=== PATIENT | male | born 1980 | race Two or more races ===

== ENCOUNTER 2017-06-09 22:58 | Inpatient (IN) | payer MEDICAID ==
[~2017-06-09] VITALS: Ht 182.9 cm; Wt 74.3 kg
[~2017-06-09 22:58] MED LIST: GEMF600T60 PO; LANT3I SC; METF1000 PO; NOVO3I SC; OMEP20CA16 PO
[2017-06-10] VITALS (8 sets, daily range): BP systolic 108–126; BP diastolic 67–89; PULSE 83–97; RESP 6–16; TEMP 97.1; Ht 182.9 cm; Wt 74.3 kg
[2017-06-10] MEDS ORDERED: ONDANSETRON (ODT) 4 MG TAB ODT STA (00:34)
--- NOTE | 2017-06-10 00:43 | ERD ---
ER Documentation Chief Complaint Chief Complaint upper abd pain x 1 day, hx of pancreatitis HPI 36-year-old male who presents emergency department for epigastric pain for 2 days. Stated that he vomited thrice with nonbilious and nonbloody emesis in the past 24 hours. Denies headache, dizziness, blurry vision, neck pain, throat pain, difficulty swallowing, shoulder pain, chest pain, back pain, constipation, diarrhea, urinary symptoms, changes in bowel or bladder habits, loss of bowel bladder control, recent long travel, recent exposure to any illness, numbness or tingling sensation, difficulty walking, fever, chills. No known drug allergies. Past medical history of diabetes, pancreatitis. No surgical history. Medication: Humalog insulin, Lantus, omeprazole. 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 Denies smoking, use of alcoholic beverages, use of illegal drugs. ROS All systems reviewed and are negative except as per history of present illness. Medications Home Meds Active Scripts Omeprazole* (Omeprazole*) 20 Mg Capsule.dr, 20 MG PO DAILY, #30 CAP Prov:CORRY CHAU MD 10/27/15 Insulin Aspart* (Novolog Insulin Pen*) 100 Unit/Ml Soln, 5 UNIT SC WITH MEALS for 30 Days, 2 Refills Prov:IRVIN HATFIELD MD 08/26/14 Insulin Glargine* (Lantus*) 100 Unit/Ml Soln, 35 UNIT SC QHS for 30 Days, 2 Refills Prov:IRVIN HATFIELD MD 08/26/14 Reported Medications Metformin Hcl* (Metformin Hcl*) 1,000 Mg Tablet, 1000 MG PO WITH BREAKFAST DINNE , TAB 08/23/14 Gemfibrozil* (Gemfibrozil*) 600 Mg Tablet, 600 MG PO BID, TAB 08/23/14 Allergies Allergies: Coded Allergies: No Known Allergy (Unverified , 10/24/15) PMhx/Soc History of Surgery: No Anesthesia Reaction: No Hx Neurological Disorder: No Hx Respiratory Disorders: No Hx Cardiac Disorders: No Hx Psychiatric Problems: No Hx Alcohol Use: Yes (OCASSIONALLY) Hx Substance Use: No Hx Tobacco Use: Yes (1 PACK PER WEEK ) Physical Exam Vitals Vital Signs Date Time Temp Pulse Resp B/P Pulse Ox O2 Delivery O2 Flow Rate FiO2 06/09/17 23:04 97.1 104 20 151/87 100 Physical Exam Const: [] Head: Atraumatic Eyes: Normal Conjunctiva ENT: Normal External Ears, Nose and Mouth. Neck: Full range of motion..~ No meningismus. Resp: Clear to auscultation bilaterally Cardio: Regular rate and rhythm, no murmurs Abd: Soft, non distended. Normal bowel sounds. Tenderness to right upper abdominal area/epigastric area on light and deep palpation during inspiration. Skin: No petechiae or rashes Back: No midline or flank tenderness Ext: No cyanosis, or edema Neur: Awake and alert Psych: Normal Mood and Affect Result Diagram: 06/10/174906/10/1749 Results 24 hrs Laboratory Tests Test 06/10/17 00:50 06/10/17 00:58 White Blood Count 11.210^3/ul Red Blood Count 4.7910^6/ul Hemoglobin 16.7g/dl Hematocrit 40.6% Mean Corpuscular Volume 84.8fl Mean Corpuscular Hemoglobin 34.9pg Mean Corpuscular Hemoglobin Concent 41.1g/dl Red Cell Distribution Width 12.2% Platelet Count 71680^3/UL Mean Platelet Volume 10.7fl Neutrophils % 86.3% Lymphocytes % 6.3% Monocytes % 6.5% Eosinophils % 0.2% Basophils % 0.3% Nucleated Red Blood Cells % 0.0/100WBC Neutrophils # 9.710^3/ul Lymphocytes # 0.710^3/ul Monocytes # 0.710^3/ul Eosinophils # 0.010^3/ul Basophils # 0.010^3/ul Nucleated Red Blood Cells # 0.010^3/ul Prothrombin Time 11.8Sec Prothrombin Time Ratio 0.9 INR International Normalized Ratio 0.87 Activated Partial Thromboplast Time 25.0Sec Sodium Level 137mmol/L Potassium Level 4.5mmol/L Chloride Level 100mmol/L Carbon Dioxide Level 14mmol/L Anion Gap 28 Blood Urea Nitrogen 10mg/dl Creatinine 0.64mg/dl Glucose Level 263mg/dl Calcium Level 9.1mg/dl Total Bilirubin 0.5mg/dl Direct Bilirubin 0.00mg/dl Indirect Bilirubin 0.5mg/dl Aspartate Amino Transf (AST/SGOT) 33IU/L Alanine Aminotransferase (ALT/SGPT) 27IU/L Alkaline Phosphatase 177IU/L Troponin I 0.019ng/ml Total Protein 7.9g/dl Albumin 3.9g/dl Globulin 4.00g/dl Albumin/Globulin Ratio 0.97 Amylase Level 472U/L Lipase 7912U/L Urine Color YELLOW Urine Clarity CLEAR Urine pH 5.0 Urine Specific [place] 1.036 Urine Ketones 2+mg/dL Urine Nitrite NEGATIVEmg/dL Urine Bilirubin NEGATIVEmg/dL Urine Urobilinogen NEGATIVEmg/dL Urine Leukocyte Esterase TRACELeu/ul Urine Microscopic RBC 4/HPF Urine Microscopic WBC 7/HPF Urine Squamous Epithelial Cells FEW/HPF Urine Hemoglobin NEGATIVEmg/dL Urine Glucose 3+mg/dL Urine Total Protein 1+mg/dl Current Medications Medications (Trade) Dose Ordered Sig/Keegan Route PRN Reason Start Time Stop Time Status Last Admin Dose Admin Ondansetron HCl (Zofran Odt) 4 mg ONCE STAT ODT 06/10/17 00:34 06/10/17 00:38 DC 06/10/17 00:49 Miscellaneous Medication 40 ml 40 ml ONCE ONCE PO 06/10/17 01:00 06/10/17 01:01 DC 06/10/17 00:49 Sodium Chloride 1,000 ml @ 1,000 mls/hr Q1H ONCE IV 06/10/17 03:30 06/10/17 04:29 Sodium Chloride (NS) 1,000 ml @ 1,000 mls/hr Q1H ONCE IV 06/10/17 03:30 06/10/17 04:29 Procedures/MDM 36-year-old male who presents emergency department for epigastric pain for 2 days. Stated that he vomited thrice with nonbilious and nonbloody emesis in the past 24 hours. Denies headache, dizziness, blurry vision, neck pain, throat pain, difficulty swallowing, shoulder pain, chest pain, back pain, constipation, diarrhea, urinary symptoms, changes in bowel or bladder habits, loss of bowel bladder control, recent long travel, recent exposure to any illness, numbness or tingling sensation, difficulty walking, fever, chills. No known drug allergies. Past medical history of diabetes, pancreatitis. No surgical history. Medication: Humalog insulin, Lantus, omeprazole. 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 Denies smoking, use of alcoholic beverages, use of illegal drugs. Physical exam: Tenderness to right upper abdominal area/epigastric area on light and deep palpation during inspiration. There is no right lower/left upper /left lower abdominal tenderness and likely palpation. Able to jump 5 times without developing right lower abdominal pain. No CVA tenderness. Disease process was explained to the patient. He verbalized understanding and agreed with the diagnostic test, treatment, plan of care, follow-up care. EKG: Sinus tachycardia with a ventricular rate of 106 bpm. No evidence of acute myocardial infarction. No evidence of ischemia. Read by supervising emergency room physician, Dr. Salomon Henderson. Abdominal ultrasound: Negative examination of the abdomen. Blood works: Elevated lipase and amylase. Mildly elevated white count. Urinalysis: Reviewed. Treatment: P.o. challenge. Zofran ODT. GI cocktail p.o. insertion. Normal saline IV. Morphine IV. Differential diagnosis: Diabetic ketoacidosis versus acute myocardial infarction versus acute coronary syndrome versus appendicitis versus cholecystitis versus diverticulitis versus appendicitis versus nephrolithiasis versus urinary tract infection versus gastritis Final diagnosis: Pancreatitis, elevated lipase and amylase, elevated blood sugar Case and diagnostic test results was discussed with supervising emergency room physician, Dr. Salomon Henderson agreed with my medical decision making to admit the patient. He also stated that he will process admission. Departure Diagnosis: Primary Impression: Abdominal pain Additional Impression: Pancreatitis ASHLEY FONTANEZ Jun 10, 2017 00:43
[2017-06-10] MEDS ORDERED: LIDOCAINE/MYLANTA 40 ML BTL PO ONE (01:00)
[2017-06-10 01:04] LABS: BASOPHILS % 0.3 % (0.0-2.0); EOSINOPHILS % 0.2 % (0.0-7.0); HEMATOCRIT 40.6 % (42.0-52.0); LYMPHOCYTES # 0.7 10^3/ul (0.8-2.9); LYMPHOCYTES % 6.3 % (15.0-51.0); MEAN CORPUSCULAR HEMOGLOBIN 34.9 pg (29.0-33.0); MEAN CORPUSCULAR VOLUME 84.8 fl (82.0-101.0); MEAN PLATELET VOLUME 10.7 fl (7.4-10.4); MONOCYTE # 0.7 10^3/ul (0.3-0.9); MONOCYTES % 6.5 % (0.0-11.0); NEUTROPHIL # 9.7 10^3/ul (1.6-7.5); NEUTROPHILS % 86.3 % (39.0-77.0); PLATELET COUNT 179 10^3/UL (140-415); POSITIVE DIFF @See below; RED BLOOD COUNT 4.79 10^6/ul (4.70-6.10); RED CELL DISTRIBUTION WIDTH 12.2 % (11.5-14.5); WHITE BLOOD COUNT 11.2 10^3/ul (4.8-10.8)
[2017-06-10 01:06] LABS: HEMOGLOBIN 16.7 g/dl (14.0-18.0); MEAN CORPUSCULAR HGB CONC 41.1 g/dl (32.0-37.0)
[2017-06-10 01:16] LABS: INR 0.87; PROTIME 11.8 Sec (12.2-14.2); PT RATIO 0.9
[2017-06-10 01:19] LABS: ALBUMIN 3.9 g/dl (3.3-4.9); ALBUMIN/GLOBULIN RATIO 0.97; BILIRUBIN,INDIRECT 0.5 mg/dl (0-1.1); BILIRUBIN,TOTAL 0.5 mg/dl (0.2-1.3); CALCIUM 9.1 mg/dl (8.4-10.2); CREATININE 0.64 mg/dl (0.61-1.24); TOTAL PROTEIN 7.9 g/dl (6.1-8.1)
[2017-06-10 01:29] LABS: TROPONIN-I 0.019 ng/ml (0.00-0.12)
[2017-06-10 01:30] LABS: ADD UMIC YES; UR ASCORBIC ACID NEGATIVE (NEGATIVE); UR BILIRUBIN (Dip) NEGATIVE (NEGATIVE); UR BLOOD (Dip) NEGATIVE (NEGATIVE); UR CLARITY CLEAR (CLEAR); UR COLOR YELLOW (YELLOW); UR GLUCOSE (Dip) 3+ mg/dL (NEGATIVE); UR KETONES (Dip) 2+ mg/dL (NEGATIVE); UR LEUKOCYTE ESTERASE (Dip) TRACE Leu/ul (NEGATIVE); UR NITRITE (Dip) NEGATIVE (NEGATIVE); UR RBC 4 /HPF (0-5); UR SPECIFIC GRAVITY (Dip) 1.036 (1.003-1.030); UR SQUAMOUS EPITHELIAL CELL FEW /HPF (FEW); UR TOTAL PROTEIN (Dip) 1+ mg/dl (NEGATIVE); UR UROBILINOGEN (Dip) NEGATIVE (NEGATIVE)
[2017-06-10 01:34] LABS: POTASSIUM 4.5 mmol/L (3.5-5.1)
--- NOTE | 2017-06-10 02:04 | RADRPT ---
PROCEDURE: US Abdomen (right upper quadrant). CLINICAL INDICATION: Pain. TECHNIQUE: Multiple real-time longitudinal and transverse images of the right upper quadrant of th e abdomen were acquired utilizing a curved array transducer. Images were reviewed on a high-resoluti on PACS workstation. COMPARISON: 10/24/2015 FINDINGS: The liver is normal in size and echogencity. There is no focal intrahepatic mass.. The gallbladder is normal. There is no pericholecystic fluid or gallbladder wall thickening or gallstones. No intr a or extrahepatic biliary dilatation is seen. The common bile duct measures 4.1 mm in maximal dimen trish. The visualized portions of the pancreas are unremarkable with obscuration of the tail of the pancreas. No free fluid is identified. Visualized abdominal aorta and IVC are unremarkable. The right kidney measures 13 cm in length. Renal cortical echogenicity is within normal limits.. T here is no perinephric fluid collection. No hydronephrosis, mass, or calculus is seen. IMPRESSION: Negative examination. RPTAT: HMVK .Antonio Zheng MD, Date Time Electronically viewed and signed by .Antonio Zheng MD, on 06/10/2017 02:03 .Alan/
[2017-06-10] MEDS ORDERED: SOD CHLORIDE 0.9% 1,000 ML IV ONE ×2 (03:30)
[2017-06-10] MEDS ORDERED: ONDANSETRON 4 MG INJ IV STA (03:33)
[2017-06-10] MEDS ORDERED: morphine 4 MG/ML VIAL IV STA ×2 (03:33→17:24)
[2017-06-10] MEDS ORDERED: ACETAMINOPHEN 325 MG TAB PO PRN (05:30)
[2017-06-10] MEDS ORDERED: ONDANSETRON 4 MG INJ IV PRN (05:30)
--- NOTE | 2017-06-10 06:16 | ERD ---
ER Documentation Chief Complaint Chief Complaint upper abd pain x 1 day, hx of pancreatitis HPI 36 you male with sharp epigastric and LUQ pain x 1 day. No radiation. Associated with nausea and vomiting. No fevers. ROS All systems reviewed and are negative except as per history of present illness. Medications Home Meds Active Scripts Omeprazole* (Omeprazole*) 20 Mg Capsule.dr, 20 MG PO DAILY, #30 CAP Prov:CORRY CHAU MD 10/27/15 Insulin Aspart* (Novolog Insulin Pen*) 100 Unit/Ml Soln, 5 UNIT SC WITH MEALS for 30 Days, 2 Refills Prov:IRVIN HATFIELD MD 08/26/14 Insulin Glargine* (Lantus*) 100 Unit/Ml Soln, 35 UNIT SC QHS for 30 Days, 2 Refills Prov:IRVIN HATFIELD MD 08/26/14 Reported Medications Metformin Hcl* (Metformin Hcl*) 1,000 Mg Tablet, 1000 MG PO WITH BREAKFAST DINNE , TAB 08/23/14 Gemfibrozil* (Gemfibrozil*) 600 Mg Tablet, 600 MG PO BID, TAB 08/23/14 Allergies Allergies: Coded Allergies: No Known Allergy (Unverified , 10/24/15) PMhx/Soc Medical and Surgical Hx: pt denies Surgical Hx History of Surgery: No Anesthesia Reaction: No Hx Neurological Disorder: No Hx Respiratory Disorders: No Hx Cardiac Disorders: No Hx Psychiatric Problems: No Hx Alcohol Use: Yes (OCASSIONALLY) Hx Substance Use: No Hx Tobacco Use: Yes (1 PACK PER WEEK ) Smoking Status: Current every day smoker Physical Exam Vitals Vital Signs Date Time Temp Pulse Resp B/P Pulse Ox O2 Delivery O2 Flow Rate FiO2 06/09/17 23:04 97.1 104 20 151/87 100 Physical Exam Const: [] Moderate distress Head: Atraumatic Eyes: Normal Conjunctiva ENT: Normal External Ears, Nose and Mouth. Neck: Full range of motion..~ No meningismus. Resp: Clear to auscultation bilaterally Cardio: Regular rate and rhythm, no murmurs Abd: Soft, LUQ and epigasric tenderness, non distended. Normal bowel sounds Skin: No petechiae or rashes Back: No midline or flank tenderness Ext: No cyanosis, or edema Neur: Awake and alert Psych: Normal Mood and Affect Result Diagram: 06/12/17 0455 06/12/17 0454 Results 24 hrs Laboratory Tests Test 06/10/17 00:50 06/10/17 00:58 White Blood Count 11.210^3/ul Red Blood Count 4.7910^6/ul Hemoglobin 16.7g/dl Hematocrit 40.6% Mean Corpuscular Volume 84.8fl Mean Corpuscular Hemoglobin 34.9pg Mean Corpuscular Hemoglobin Concent 41.1g/dl Red Cell Distribution Width 12.2% Platelet Count 60835^3/UL Mean Platelet Volume 10.7fl Neutrophils % 86.3% Lymphocytes % 6.3% Monocytes % 6.5% Eosinophils % 0.2% Basophils % 0.3% Nucleated Red Blood Cells % 0.0/100WBC Neutrophils # 9.710^3/ul Lymphocytes # 0.710^3/ul Monocytes # 0.710^3/ul Eosinophils # 0.010^3/ul Basophils # 0.010^3/ul Nucleated Red Blood Cells # 0.010^3/ul Prothrombin Time 11.8Sec Prothrombin Time Ratio 0.9 INR International Normalized Ratio 0.87 Activated Partial Thromboplast Time 25.0Sec Sodium Level 137mmol/L Potassium Level 4.5mmol/L Chloride Level 100mmol/L Carbon Dioxide Level 14mmol/L Anion Gap 28 Blood Urea Nitrogen 10mg/dl Creatinine 0.64mg/dl Glucose Level 263mg/dl Calcium Level 9.1mg/dl Total Bilirubin 0.5mg/dl Direct Bilirubin 0.00mg/dl Indirect Bilirubin 0.5mg/dl Aspartate Amino Transf (AST/SGOT) 33IU/L Alanine Aminotransferase (ALT/SGPT) 27IU/L Alkaline Phosphatase 177IU/L Troponin I 0.019ng/ml Total Protein 7.9g/dl Albumin 3.9g/dl Globulin 4.00g/dl Albumin/Globulin Ratio 0.97 Amylase Level 472U/L Lipase 7912U/L Urine Color YELLOW Urine Clarity CLEAR Urine pH 5.0 Urine Specific [place] 1.036 Urine Ketones 2+mg/dL Urine Nitrite NEGATIVEmg/dL Urine Bilirubin NEGATIVEmg/dL Urine Urobilinogen NEGATIVEmg/dL Urine Leukocyte Esterase TRACELeu/ul Urine Microscopic RBC 4/HPF Urine Microscopic WBC 7/HPF Urine Squamous Epithelial Cells FEW/HPF Urine Hemoglobin NEGATIVEmg/dL Urine Glucose 3+mg/dL Urine Total Protein 1+mg/dl Current Medications Medications (Trade) Dose Ordered Sig/Keegan Route PRN Reason Start Time Stop Time Status Last Admin Dose Admin Ondansetron HCl (Zofran Odt) 4 mg ONCE STAT ODT 06/10/17 00:34 06/10/17 00:38 DC 06/10/17 00:49 Miscellaneous Medication 40 ml 40 ml ONCE ONCE PO 06/10/17 01:00 06/10/17 01:01 DC 06/10/17 00:49 Sodium Chloride 1,000 ml @ 1,000 mls/hr Q1H ONCE IV 06/10/17 03:30 06/10/17 04:29 DC 06/10/17 03:58 Sodium Chloride (NS) 1,000 ml @ 1,000 mls/hr Q1H ONCE IV 06/10/17 03:30 06/10/17 04:29 DC 06/10/17 03:58 Morphine Sulfate (morphine) 4 mg ONCE STAT IV 06/10/17 03:33 06/10/17 03:35 DC 06/10/17 03:58 Ondansetron HCl (Zofran Inj) 4 mg ONCE STAT IV 06/10/17 03:33 06/10/17 03:35 DC 06/10/17 03:58 Procedures/MDM Patient has significant elevation of lipase and pain pedicles with pancreatitis. However he denies alcohol and has no evidence of action from a gallstone. He also has hypergycemia and low bicarb. He was given multiple leaders of NS in order to treat pancreatitis and prevent progression to DKA. He will be admitted for further workup. Pain is currently controlled with IV morphine. He is being admitted to Dr. Bautista for further management. US gallbladder. No gallstones or signs of cholecystitis. EKG interpretation: sinus origine of rhythm with no ST or T wave changes concerning for acute ischemia Departure Diagnosis: Primary Impression: Abdominal pain Additional Impressions: Pancreatitis Hyperglycemia Condition: Serious GLENN LUTHER DO Jun 10, 2017 06:16 Hyperglycemia GLENN LUTHER DO Jun 10, 2017 06:16
[2017-06-10 07:22] LABS: BASOPHILS % 0.2 % (0.0-2.0); EOSINOPHILS % 0.2 % (0.0-7.0); HEMATOCRIT 36.4 % (42.0-52.0); HEMOGLOBIN 14.1 g/dl (14.0-18.0); LYMPHOCYTES # 0.9 10^3/ul (0.8-2.9); MEAN CORPUSCULAR HEMOGLOBIN 33.5 pg (29.0-33.0); MEAN CORPUSCULAR VOLUME 86.5 fl (82.0-101.0); MEAN PLATELET VOLUME 11.1 fl (7.4-10.4); MONOCYTE # 0.6 10^3/ul (0.3-0.9); MONOCYTES % 6.9 % (0.0-11.0); NEUTROPHIL # 7.5 10^3/ul (1.6-7.5); NEUTROPHILS % 82.4 % (39.0-77.0); PLATELET COUNT 149 10^3/UL (140-415); POSITIVE DIFF @See below; RED BLOOD COUNT 4.21 10^6/ul (4.70-6.10); RED CELL DISTRIBUTION WIDTH 12.6 % (11.5-14.5); WHITE BLOOD COUNT 9.1 10^3/ul (4.8-10.8)
[2017-06-10] MEDS ORDERED: HYDROmorphONE 1 MG/ML SYG IV STA ×2 (07:34→12:29)
[2017-06-10 07:38] LABS: MEAN CORPUSCULAR HGB CONC 38.7 g/dl (32.0-37.0)
[2017-06-10] MEDS: SOD CHLORIDE 0.9% 1,000 ML IV SCH ×3 (07:50→18:04)
[2017-06-10] MEDS: CIPROFLOXACIN 400MG/D5W 200 ML IVPB SCH ×2 (08:32→21:49)
[2017-06-10 08:49] LABS: MAGNESIUM 1.9 mg/dl (1.7-2.5)
--- NOTE | 2017-06-10 08:51 | HP ---
Date/Time of Note Date/Time of Note DATE: 06/10/17 TIME: 08:43 Assessment/Plan VTE Prophylaxis VTE Prophylaxis Intervention: SCD's Assessment/Plan Problems: (1) Diabetes mellitus type 2 in nonobese Status: Chronic Comment: His chronic diabetes but his control has been at best fair. I am in place him back on insulin but while he is n.p.o. for the pancreatitis we will using sliding scale. Please note if his repeat labs come back consistent with DKA and we will place him in the ICU on a drip. (2) Metabolic acidemia Status: Acute Comment: I suspect that more of this is due to lactic acidosis those labs are pending. (3) Abdominal pain Status: Acute Comment: This is due to his pancreatitis Qualifiers: Abdominal location: epigastric Qualified Code: R10.13 - Epigastric pain (4) Pancreatitis Status: Acute Comment: Significant elevation of lipase. Presently there is no indication of complications due to the pancreatitis, his Cotter score is 1 Qualifiers: Chronicity: acute Pancreatitis type: other Acute pancreatitis complication: no infection or necrosis Qualified Code: K85.80 - Other acute pancreatitis without infection or necrosis HPI/ROS Admit Date/Time Admit Date/Time Jun 10, 2017 at 05:22 Hx of Present Illness 36-year-old gentleman with a prior history of diabetes mellitus type 2 treated as a type I diabetic. Please note he has negative studies for anti-cristina antibodies. He has a history of repetitive pancreatitis with this being I believe his fourth episode. Please note he has hypertriglyceridemia by history. He denies any history of alcohol consumption or recreational drug usage. He had been in his usual state of health using multiple daily injection regimen of insulin when he developed the onset of abdominal pain with nausea and vomiting starting 48 hours ago. He denies any fevers chills or sweats. He presented to the emergency room where he was found to have pancreatitis but also has an anion gap acidosis. ROS Constitutional: no complaints (Denies fevers chills or sweats) Eyes: no complaints ENT: no complaints Respiratory: no complaints (Specifically denies cough wheezing or shortness of breath) Cardiovascular: palpitations (Nose palpitations since the onset of the abdominal pain but otherwise negative) Gastrointestinal: nausea, other (No melena no bright red blood per rectum no diarrhea no constipation no jaundice or icterus), pain, vomiting Genitourinary: no complaints Musculoskeletal: no complaints Skin: no complaints Neurologic: no complaints Endocrine: polydypsia, polyuria Lymphatic: no complaints Psychological: nl mood/affect, no complaints Immunologic: no complaints PMH/Family/Social Past Medical History Medical History: diabetes (Type II vitreous type I has had DKA when under stress), high cholesterol (Mixed hyperlipidemia), pancreatitis (3 prior episodes ) Past Surgical History Past Surgical Hx: no surgical history Family History Significant Family History: heart disease, diabetes Social History Alcohol Use: none Smoking Status: Current every day smoker Drug Use: none Exam/Review of Systems Vital Signs Vitals Vital Signs Date Time Temp Pulse Resp B/P Pulse Ox O2 Delivery O2 Flow Rate FiO2 06/10/17 05:29 97.1 81 20 141/82 100 Room Air Exam Constitutional: alert, oriented Head: atraumatic, normocephalic Eyes: EOMI, PERRL, nl conjunctiva, nl lids, nl sclera ENMT: mucosa pink and moist, nl external ears & nose, nl lips & teeth, nl nasal mucosa & septum Neck: non-tender, supple Respiratory: clear to auscultation, normal air movement Cardiovascular: nl pulses, regular rate and rhythm Gastrointestinal: nl liver, spleen, soft, tender (None rebound tender especially in the epigastrium and left upper quadrant) Musculoskeletal: nl extremities to inspection, nl gait and stance Extremities: normal pulses, other (No lesions, no evidence of onychomycosis or tinea) 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, nl mental status, nl speech, nl strength Skin: nl turgor Lymph: nl lymph nodes Labs Result Diagram: 06/10/17 0658 06/10/17 0050 Medications Medications Current outpatient medications to the best of the patient's recollection 1) Lantus insulin 20 units in the morning 15 units at bedtime; 2) Humalog insulin 15 units in the morning 10 units at dinnertime not at lunch; 3) simvastatin 10 mg once a day; 4) fenofibrate 145 mg once a day Current Medications Sodium Chloride (NS) 1,000 ml @ 200 mls/hr Q5H IV Last administered on t 07:50; Admin Dose 200 MLS/HR; Start 06/10/17 at 07:00 Insulin Aspart NOVOLOG *MODERATE* ALGORI... Q4 SC ; Start 06/10/17 at 09:00 Ciprofloxacin/ Dextrose (Cipro Ivpb) 200 ml @ 200 mls/hr Q12 IVPB Last administered on 06/10/17t 08:32; Admin Dose 200 MLS/HR; Start 06/10/17 at 09: 00 GLENN BERRIOS MD Jun 10, 2017 08:51
[2017-06-10 08:59] LABS: ALBUMIN/GLOBULIN RATIO 1.11; BILIRUBIN,DIRECT 0.1 mg/dl (0.00-0.20); BILIRUBIN,TOTAL 0.1 mg/dl (0.2-1.3); CALCIUM 8.3 mg/dl (8.4-10.2); CREATININE 0.53 mg/dl (0.61-1.24); POTASSIUM 4.7 mmol/L (3.5-5.1); TOTAL PROTEIN 5.7 g/dl (6.1-8.1)
[2017-06-10] MEDS ORDERED: INSULIN ASPART [NOVOLOG] 3 ML PEN SC SCH (09:00)
[2017-06-10] MEDS ORDERED: LACTATED RINGER'S 1,000 ML IV STA (09:02)
[2017-06-10] MEDS ORDERED: INSULIN HUMAN REGULAR 100 UNIT in SOD CHLORIDE 0.9% 99 ML IV STA (09:02)
--- NOTE | 2017-06-10 09:04 | QN ---
Documentation Comment Observation Note: Time: 4 hours Family Hx: Positive for diabetes Evaluation: Multiple exams showed improving symptoms and no evidence of clinical decompensation. The patient's repeat BMP showed a worsening acidosis with a bicarb of 8. The patient will be given 1 L of lactated Ringer's and started on an insulin drip at 7 U/h. He will be upgraded to the ICU given the worsening acidosis and diabetic ketoacidosis. NADYA MARINELLI MD Jun 10, 2017 09:04
[2017-06-10 09:16] LABS: TRIGLYCERIDES > 1575 mg/dl (0-149)
[2017-06-10 09:39] LABS: CHOL/HDL RATIO 9.6 RATIO; CHOLESTEROL 271 mg/dl (100-200); HDL CHOLESTEROL 28 mg/dl (28-63)
[2017-06-10] MEDS ORDERED: SOD CHLORIDE 0.9% 1,000 ML IV SCH (11:02)
--- NOTE | 2017-06-10 11:15 | EN ---
Date/Time of Note Date/Time of Note DATE: 06/10/17 TIME: 11:13 Event Note Medicine Medicine Event Note His follow-up blood tests have come back and are consistent with DKA. The pancreatitis is being driven by his hypertriglyceridemia. Pancreatitis is then causing the DKA. Undoubtedly has limited pancreatic beta cell reserve. Treatment with standard DKA protocol with IV insulin will cause normally resolution of the DKA but the insulin will dry the triglycerides down which will take away the stressor on the pancreas. He will need to be in the intensive care unit for the IV as well as to be cautious due to the pancreatitis. He will be n.p.o. except for omega-3 fish oil which will also help for the triglycerides. GLENN BERRIOS MD Jun 10, 2017 11:15
[2017-06-10] MEDS ORDERED: ACCU-CHEK XX SCH ×2 (11:30→14:00)
[2017-06-10] MEDS: FISH OIL 1,000 MG CAP PO SCH ×2 (11:30→21:49)
[2017-06-10] MEDS: ACCU-CHEK XX SCH ×12 (11:30→23:00)
[2017-06-10] MEDS ORDERED: DEXTROSE 50% 50 ML SYRINGE IV PRN ×2 (11:30)
[2017-06-10] MEDS ORDERED: HYPOGLYCEMIA TREATMENT XX PRN (11:30)
[2017-06-10] MEDS ORDERED: INSULIN HUMAN REGULAR 100 UNIT in SOD CHLORIDE 0.9% 99 ML IV SCH ×3 (11:30→21:00)
[2017-06-10] MEDS ORDERED: LACTATED RINGER'S 1,000 ML IV SCH (12:02)
[2017-06-10 12:19] LABS: CALCIUM 8.4 mg/dl (8.4-10.2); CREATININE 0.52 mg/dl (0.61-1.24)
[2017-06-10 12:30] LABS: PHOSPHORUS 2.5 mg/dl (2.5-4.9)
[2017-06-10] MEDS ORDERED: POTASSIUM CHLORIDE 10 MEQ in SOD CHLORIDE 0.9% 1,000 ML IV SCH (13:02)
[2017-06-10] MEDS ORDERED: DEXTROSE 5%-0.9% NACL 1,000 ML IV STA (14:10)
[2017-06-10] MEDS ORDERED: POTASSIUM CHLORIDE 10 MEQ in LACTATED RINGER'S 1,000 ML IV SCH (15:02)
[2017-06-10 15:10] LABS: CALCIUM 7.9 mg/dl (8.4-10.2); CREATININE 0.5 mg/dl (0.61-1.24)
[2017-06-10] MEDS ORDERED: INSULIN LISPRO 100 UNIT/ML VIAL SC STA (15:23)
[2017-06-10] MEDS ORDERED: INSULIN REGULAR, HUMAN 100 UNIT/1 ML 3ML VIAL IV ONE (16:00)
[2017-06-10] MEDS: D5-LR + KCL 20 MEQ 1,000 ML IV SCH (16:20)
[2017-06-10 17:35] LABS: CALCIUM 8.2 mg/dl (8.4-10.2); CREATININE 0.57 mg/dl (0.61-1.24); POTASSIUM 3.8 mmol/L (3.5-5.1)
[2017-06-10] MEDS ORDERED: HYDROmorphONE 2 MG/ML SYG ONE (18:11)
[2017-06-10] MEDS: HYDROmorphONE 2 MG/ML SYG IV PRN ×2 (18:14→22:30)
[2017-06-11] VITALS (24 sets, daily range): BP systolic 101–139; BP diastolic 67–94; PULSE 80–92; RESP 8–20
[2017-06-11] MEDS: ACCU-CHEK XX SCH ×15 (01:00→13:57)
[2017-06-11] MEDS ORDERED: ACCU-CHEK XX SCH (02:00)
[2017-06-11] MEDS: D5-LR + KCL 20 MEQ 1,000 ML IV SCH ×2 (05:20→05:59)
[2017-06-11] MEDS: HYDROmorphONE 2 MG/ML SYG IV PRN ×3 (05:53→18:55)
[2017-06-11 06:52] LABS: BASOPHILS % 0.3 % (0.0-2.0); EOSINOPHILS # 0.1 10^3/ul (0.0-0.5); EOSINOPHILS % 1.7 % (0.0-7.0); HEMATOCRIT 37.3 % (42.0-52.0); HEMOGLOBIN 13.3 g/dl (14.0-18.0); MEAN CORPUSCULAR HEMOGLOBIN 30.9 pg (29.0-33.0); MEAN CORPUSCULAR HGB CONC 35.7 g/dl (32.0-37.0); MEAN CORPUSCULAR VOLUME 86.7 fl (82.0-101.0); MEAN PLATELET VOLUME 10.6 fl (7.4-10.4); MONOCYTE # 0.5 10^3/ul (0.3-0.9); NEUTROPHIL # 4.7 10^3/ul (1.6-7.5); NEUTROPHILS % 73.7 % (39.0-77.0); PLATELET COUNT 142 10^3/UL (140-415); RED CELL DISTRIBUTION WIDTH 13.4 % (11.5-14.5); WHITE BLOOD COUNT 6.4 10^3/ul (4.8-10.8)
[2017-06-11 07:13] LABS: ALBUMIN 2.8 g/dl (3.3-4.9); ALBUMIN/GLOBULIN RATIO 0.84; BILIRUBIN,INDIRECT 0.4 mg/dl (0-1.1); BILIRUBIN,TOTAL 0.4 mg/dl (0.2-1.3); CALCIUM 8.6 mg/dl (8.4-10.2); CREATININE 0.51 mg/dl (0.61-1.24); POTASSIUM 3.4 mmol/L (3.5-5.1); TOTAL PROTEIN 6.1 g/dl (6.1-8.1)
[2017-06-11] MEDS: CIPROFLOXACIN 400MG/D5W 200 ML IVPB SCH ×2 (08:29→21:33)
[2017-06-11] MEDS ORDERED: POTASSIUM CHLORIDE 250 ML IVPB ONE (08:30)
[2017-06-11] MEDS: FISH OIL 1,000 MG CAP PO SCH ×2 (08:30→21:33)
--- NOTE | 2017-06-11 08:34 | PN ---
Date/Time of Note Date/Time of Note DATE: 06/11/17 TIME: 08:29 Assessment/Plan VTE Prophylaxis VTE Prophylaxis Intervention: SCD's Lines/Catheters IV [facility] (from [facility]): Peripheral IV Assessment/Plan Problems: (1) DKA (diabetic ketoacidoses) Status: Resolved Comment: This gentleman is DKA has resolved. Again this was driven by stress. He does have some likely internal insulin manufacturing. Regardless he is at the point where I am taking him off the drip and transitioned over to subcu insulin. 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 As such is appropriate to treat in an insulin based protocol. GLP-1 drugs and DPP for drugs should be avoided in his case. (4) Pancreatitis Status: Acute Comment: This is still active but significantly improved. Is not the time where he comes transition over to be getting to take an oral diet. However we will start back tracking on his the aggressive intervention. Plan will be to transfer him out of the intensive care unit to regular floor bed later today. Please note my suspicion that was driving the recurrent pancreatitis is hypertriglyceridemia. As an outpatient his therapeutic regimen will need to be a statin with a low-dose fabric acid derivative and omega-3 fish oil at full dosage Qualifiers: Chronicity: acute Pancreatitis type: other Acute pancreatitis complication: no infection or necrosis Qualified Code: K85.80 - Other acute pancreatitis without infection or necrosis Subjective 24 Hr Interval Summary Free Text/Dictation Patient reports he is feeling better. He reports his abdominal pain is a 4 out of 10. His nausea has resolved. No fevers chills or sweats Constitutional: no complaints Eyes: no complaints Respiratory: no complaints Cardiovascular: no complaints Gastrointestinal: pain (Pain is a 4 out of 10 nausea vomiting of stopped) Genitourinary: no complaints Musculoskeletal: no complaints Endocrine: no complaints Exam/Review of Systems Vital Signs Vitals Vital Signs Date Time Temp Pulse Resp B/P Pulse Ox O2 Delivery O2 Flow Rate FiO2 06/11/17 06:00 91 15 117/76 96 06/11/17 04:00 98.6 06/11/17 03:00 Room Air Intake and Output 06/10/17 06/10/17 06/11/17 15:00 23:00 07:00 Intake Total 1819.5 ml 1456.5 ml Balance 1819.5 ml 1456.5 ml Exam Constitutional: alert, oriented ENMT: mucosa pink and moist, nl external ears & nose, nl lips & teeth, nl nasal mucosa & septum Neck: non-tender, supple Respiratory: clear to auscultation, normal air movement Cardiovascular: nl pulses, regular rate and rhythm Gastrointestinal: nl liver, spleen, non-tender, soft Results Result Diagram: 06/11/17 0635 06/11/17 0635 Results 24 hrs Laboratory Tests Test 06/10/17 08:35 06/10/17 09:38 06/10/17 11:01 06/10/17 11:44 Bedside Glucose 272 H 276 H 233 H Sodium Level 139 Potassium Level 4.0 Chloride Level 113 H Carbon Dioxide Level 15 L Anion Gap 15 # Blood Urea Nitrogen 7 Creatinine 0.52 L Glucose Level 208 Fasting Glucose 207 H Hemoglobin A1c Calcium Level 8.4 Phosphorus Level 2.5 Test 06/10/17 12:17 06/10/17 13:03 06/10/17 14:09 06/10/17 14:26 Bedside Glucose 187 149 119 Sodium Level 140 Potassium Level 4.0 Chloride Level 112 H Carbon Dioxide Level 19 L Anion Gap 13 Blood Urea Nitrogen 7 Creatinine 0.50 L Glucose Level 112 # Calcium Level 7.9 L Test 06/10/17 14:58 06/10/17 16:05 06/10/17 16:56 06/10/17 17:30 Bedside Glucose 101 101 77 Sodium Level 139 Potassium Level 3.8 Chloride Level 112 H Carbon Dioxide Level 22 Anion Gap 9 Blood Urea Nitrogen 7 Creatinine 0.57 L Glucose Level 65 #L Calcium Level 8.2 L Test 06/10/17 18:30 06/10/17 19:33 06/10/17 20:34 06/10/17 21:35 Bedside Glucose 83 88 102 104 Test 06/10/17 22:35 06/11/17 00:52 06/11/17 02:24 06/11/17 05:35 Bedside Glucose 90 149 119 92 Test 06/11/17 06:10 06/11/17 06:35 06/11/17 07:49 Lactic Acid Level 0.9 White Blood Count 6.4 # Red Blood Count 4.30 L Hemoglobin 13.3 L Hematocrit 37.3 L Mean Corpuscular Volume 86.7 Mean Corpuscular Hemoglobin 30.9 Mean Corpuscular Hemoglobin Concent 35.7 Red Cell Distribution Width 13.4 Platelet Count 142 Mean Platelet Volume 10.6 H Neutrophils % 73.7 Lymphocytes % 16.0 Monocytes % 8.0 Eosinophils % 1.7 Basophils % 0.3 Nucleated Red Blood Cells % 0.0 Neutrophils # 4.7 Lymphocytes # 1.0 Monocytes # 0.5 Eosinophils # 0.1 Basophils # 0.0 Nucleated Red Blood Cells # 0.0 Sodium Level 139 Potassium Level 3.4 L Chloride Level 111 H Carbon Dioxide Level 22 Anion Gap 9 Blood Urea Nitrogen 8 Creatinine 0.51 L Glucose Level 81 Calcium Level 8.6 Phosphorus Level 2.7 Total Bilirubin 0.4 Direct Bilirubin 0.00 Indirect Bilirubin 0.4 Aspartate Amino Transf (AST/SGOT) 17 Alanine Aminotransferase (ALT/SGPT) 29 Alkaline Phosphatase 84 Total Protein 6.1 Albumin 2.8 L Globulin 3.30 H Albumin/Globulin Ratio 0.84 Amylase Level 255 #H Lipase 923 H Bedside Glucose 154 Medications Medications Current Medications Insulin Aspart NOVOLOG *MODERATE* ALGORI... Q4 SC ; Start 06/10/17 at 09:00; Status Future Hold Ciprofloxacin/ Dextrose (Cipro Ivpb) 200 ml @ 200 mls/hr Q12 IVPB Last administered on 06/10/17 21:49; Admin Dose 200 MLS/HR; Start 06/10/17 at 09: 00 Dextrose (D50w Syringe) 50 ml Q15M PRN IV For BS 50 or less; Start 06/10/17 at 11:30 Dextrose (D50w Syringe) 25 ml Q15M PRN IV BS between 50-70; Start 06/10/17 at 11:30 Fish Oil 2000 mg 2,000 mg BID PO Last administered on 06/10/17 21:49; Admin Dose 2,000 MG; Start 06/10/17 at 11:30 Potassium Cl/ Dextrose/Lact Ringer's (D5-Lr + KCl 20 Meq) 1,000 ml @ 150 mls/ hr Q6H40M IV Last administered on 06/11/17 05:20; Admin Dose 150 MLS/HR; Start 06/10/17 at 16:00 Hydromorphone HCl (Dilaudid) 2 mg Q2 PRN IV PAIN Last administered on 05:53; Admin Dose 2 MG; Start 06/10/17 at 18:30 Diagnostic Test (Pha) (Accu-Chek) 1 ea Q1H XX Last administered on 06/11/17 08:02; Admin Dose 1 EA; Start 06/10/17 at 21:00 GLENN BERRIOS MD Jun 11, 2017 08:34
[2017-06-11] MEDS: INSULIN GLARGINE [LANtus] 3 ML PEN SC SCH ×2 (10:08→21:27)
[2017-06-11] MEDS: INSULIN ASPART [NOVOLOG] 3 ML PEN SC SCH ×3 (11:30→21:00)
[2017-06-11] MEDS: POTASSIUM CHLORIDE 10 MEQ in LACTATED RINGER'S 1,000 ML IV SCH (18:44)
[2017-06-12] MEDS: HYDROmorphONE 2 MG/ML SYG IV PRN ×3 (00:01→20:38)
[2017-06-12] MEDS: ACCU-CHEK XX SCH (01:37)
[2017-06-12] MEDS ORDERED: ACCU-CHEK XX SCH (02:00)
[2017-06-12 05:52] LABS: BASOPHILS % 0.8 % (0.0-2.0); EOSINOPHILS # 0.1 10^3/ul (0.0-0.5); EOSINOPHILS % 3.5 % (0.0-7.0); HEMATOCRIT 39.2 % (42.0-52.0); HEMOGLOBIN 13.8 g/dl (14.0-18.0); LYMPHOCYTES # 1.3 10^3/ul (0.8-2.9); LYMPHOCYTES % 35.7 % (15.0-51.0); MEAN CORPUSCULAR HEMOGLOBIN 30.7 pg (29.0-33.0); MEAN CORPUSCULAR HGB CONC 35.2 g/dl (32.0-37.0); MEAN CORPUSCULAR VOLUME 87.3 fl (82.0-101.0); MEAN PLATELET VOLUME 10.7 fl (7.4-10.4); MONOCYTE # 0.4 10^3/ul (0.3-0.9); MONOCYTES % 10.7 % (0.0-11.0); NEUTROPHIL # 1.8 10^3/ul (1.6-7.5); NEUTROPHILS % 49.3 % (39.0-77.0); PLATELET COUNT 153 10^3/UL (140-415); RED BLOOD COUNT 4.49 10^6/ul (4.70-6.10); RED CELL DISTRIBUTION WIDTH 13.9 % (11.5-14.5); WHITE BLOOD COUNT 3.7 10^3/ul (4.8-10.8)
[2017-06-12] MEDS: POTASSIUM CHLORIDE 10 MEQ in LACTATED RINGER'S 1,000 ML IV SCH ×2 (06:18→16:06)
[2017-06-12 07:18] VITALS: BP 114/80; RESP 20
[2017-06-12 07:25] LABS: ALBUMIN/GLOBULIN RATIO 0.9; BILIRUBIN,INDIRECT 0.4 mg/dl (0-1.1); BILIRUBIN,TOTAL 0.4 mg/dl (0.2-1.3); CALCIUM 8.9 mg/dl (8.4-10.2); CREATININE 0.54 mg/dl (0.61-1.24); POTASSIUM 3.3 mmol/L (3.5-5.1); TOTAL PROTEIN 6.3 g/dl (6.1-8.1)
[2017-06-12] MEDS: INSULIN ASPART [NOVOLOG] 3 ML PEN SC SCH ×4 (07:50→21:33)
[2017-06-12] MEDS ORDERED: INSULIN GLARGINE [LANtus] 3 ML PEN SC SCH (08:00)
[2017-06-12] MEDS: CIPROFLOXACIN 400MG/D5W 200 ML IVPB SCH (08:14)
[2017-06-12] MEDS: FISH OIL 1,000 MG CAP PO SCH ×2 (08:14→20:38)
[2017-06-12 08:15] LABS: CHOL/HDL RATIO 9.8 RATIO
--- NOTE | 2017-06-12 08:49 | CONS ---
Date/Time of Note Date/Time of Note DATE: 06/12/17 TIME: 08:45 Assessment/Plan Assessment/Plan Problems: (1) Mixed hyperlipidemia due to type 2 diabetes mellitus Status: Chronic Comment: This needs to be treated aggressively with a combination of therapy. Statin dose needs to be bumped upward he will be on atorvastatin at 80 mg day. In addition he will resume his fabric acid over derivative as fenofibrate and be on full dose omega-3 fish oil. Please note he was on half dose as an outpatient. Also be aware that his recommendations for treatment had him at full dose fish oil he had made a mistake (2) Hypertriglyceridemia Status: Chronic Comment: Noted. This is very likely to be the etiologic cause of his recurrent pancreatitis (3) Pancreatitis Status: Acute Comment: This is outlying down nicely but he is not out of the jo yet. We will gently start him on a clear liquid diet and see how he does. Qualifiers: Chronicity: acute Pancreatitis type: other Acute pancreatitis complication: no infection or necrosis Qualified Code: K85.80 - Other acute pancreatitis without infection or necrosis (4) DKA (diabetic ketoacidoses) Status: Resolved Comment: Fully resolved Qualifiers: Diabetes mellitus type: due to underlying condition Diabetes mellitus complication detail: without coma Qualified Code: E08.10 - Diabetic ketoacidosis without coma associated with diabetes mellitus due to underlying condition (5) Diabetes mellitus type 2 in nonobese Status: Chronic Comment: Consideration to add in an oral agent is present. Please note he is not a candidate for GLP-1's or DPP for drugs. Actually in his individual setting pioglitazone may be of an appropriate consideration Consultation Date/Type/Reason Admit Date/Time Jun 10, 2017 at 05:22 Initial Consult Date Number 2016 Type of Consultation: Endocrinology Reason for Consultation Diabetes mellitus type 2 with partial pancreatic beta cell insufficiency and mixed hyperlipidemia with severe hypertriglyceridemia inducing pancreatitis recurrently Referring Provider: IRVIN HATFIELD MD 24 HR Interval Summary Free Text/Dictation Patient reports that with the conservative treatment has abdominal pain while not resolved has gone down enormously. Constitutional: no complaints (Denies fevers chills or sweats) Detailed Summary Respiratory: no complaints Cardiovascular: no complaints Gastrointestinal: pain (Pain is now roughly 3 out of 10) Genitourinary: no complaints Musculoskeletal: no complaints Exam/Review of Systems Vital Signs Vitals Vital Signs Date Time Temp Pulse Resp B/P Pulse Ox O2 Delivery O2 Flow Rate FiO2 06/12/17 07:18 97.8 95 20 114/80 99 06/11/17 20:00 Room Air Intake and Output 06/11/17 06/11/17 06/12/17 15:00 23:00 07:00 Intake Total 465.0 ml 200 ml 875 ml Output Total 1150 ml 700 ml Balance -685.0 ml 200 ml 175 ml Exam Constitutional: alert, oriented Neck: non-tender, supple Respiratory: clear to auscultation, normal air movement Cardiovascular: nl pulses, regular rate and rhythm Gastrointestinal: nl liver, spleen, non-tender, soft Results Result Diagram: 06/12/17 0455 06/12/17 0454 Results 24 hrs Laboratory Tests Test 06/11/17 09:04 06/11/17 10:04 06/11/17 11:16 06/11/17 11:46 Bedside Glucose 144 141 121 118 Test 06/11/17 12:46 06/11/17 13:52 06/11/17 16:13 06/11/17 17:31 Bedside Glucose 125 131 152 143 Test 06/11/17 21:22 06/12/17 04:54 06/12/17 04:55 06/12/17 07:59 Bedside Glucose 135 115 Sodium Level 140 Potassium Level 3.3 L Chloride Level 108 Carbon Dioxide Level 24 Anion Gap 11 Blood Urea Nitrogen 7 Creatinine 0.54 L Glucose Level 124 # Calcium Level 8.9 Total Bilirubin 0.4 Direct Bilirubin 0.00 Indirect Bilirubin 0.4 Aspartate Amino Transf (AST/SGOT) 16 Alanine Aminotransferase (ALT/SGPT) 24 Alkaline Phosphatase 90 Total Protein 6.3 Albumin 3.0 L Globulin 3.30 H Albumin/Globulin Ratio 0.90 Amylase Level 148 H Lipase 470 H White Blood Count 3.7 #L Red Blood Count 4.49 L Hemoglobin 13.8 L Hematocrit 39.2 L Mean Corpuscular Volume 87.3 Mean Corpuscular Hemoglobin 30.7 Mean Corpuscular Hemoglobin Concent 35.2 Red Cell Distribution Width 13.9 Platelet Count 153 Mean Platelet Volume 10.7 H Neutrophils % 49.3 Lymphocytes % 35.7 Monocytes % 10.7 Eosinophils % 3.5 Basophils % 0.8 Nucleated Red Blood Cells % 0.0 Neutrophils # 1.8 Lymphocytes # 1.3 Monocytes # 0.4 Eosinophils # 0.1 Basophils # 0.0 Nucleated Red Blood Cells # 0.0 Triglycerides Level 867 H Cholesterol Level 394 #H LDL Cholesterol, Calculated 181 HDL Cholesterol 40 # Cholesterol/HDL Ratio 9.8 Medications Medications Current Medications Insulin Aspart NOVOLOG *MODERATE* ALGORI... Q4 SC ; Start 06/10/17 at 09:00; Status Future Hold Ciprofloxacin/ Dextrose (Cipro Ivpb) 200 ml @ 200 mls/hr Q12 IVPB Last administered on 06/12/17 08:14; Admin Dose 200 MLS/HR; Start 06/10/17 at 09: 00 Dextrose (D50w Syringe) 50 ml Q15M PRN IV For BS 50 or less; Start 06/10/17 at 11:30 Dextrose (D50w Syringe) 25 ml Q15M PRN IV BS between 50-70; Start 06/10/17 at 11:30 Fish Oil (Fish Oil) 2,000 mg BID PO Last administered on 06/12/17 08:14; Admin Dose 2,000 MG; Start 06/10/17 at 11:30 Hydromorphone HCl (Dilaudid) 2 mg Q2 PRN IV PAIN Last administered on 05:20; Admin Dose 2 MG; Start 06/10/17 at 18:30 Insulin Glargine (Lantus) 15 unit DAILY@20 SC Last administered on 06/11/17 21:27; Admin Dose 15 UNIT; Start 06/11/17 at 20:00 Diagnostic Test (Pha) (Accu-Chek) 1 ea 02 XX ; Start 06/12/17 at 02:00 Insulin Glargine 25 unit 25 unit DAILY@08 SC Last administered on 06/11/17 10 :08; Admin Dose 25 UNIT; Start 06/11/17 at 09:00 Potassium Chloride/Lactated Ringer's (KCl/Lr) 1,005 ml @ 75 mls/hr [id number] IV Last administered on 06/11/17 18:44; Admin Dose 75 MLS/HR; Start 06/11/17 at 17:00 GLENN BERRIOS MD Jun 12, 2017 08:49
[2017-06-12] MEDS: FENOFIBRATE 145 MG TAB PO SCH (09:29)
[2017-06-12] MEDS: INSULIN GLARGINE [LANtus] 3 ML PEN SC SCH ×2 (09:34→21:32)
[2017-06-12] MEDS ORDERED: POTASSIUM CHLORIDE 250 ML IVPB ONE (10:00)
[2017-06-12] MEDS: PIOGLITAZONE 30 MG TAB PO SCH (11:44)
--- NOTE | 2017-06-12 12:23 | PN ---
Date/Time of Note Date/Time of Note DATE: 06/12/17 TIME: 12:22 Assessment/Plan VTE Prophylaxis VTE Prophylaxis Intervention: ambulation Lines/Catheters IV Catheter Type (from [facility]): Peripheral IV Assessment/Plan Chief Complaint/Hosp Course 36-year-old male with type 2 diabetes, presented to the emergency room with sudden onset of abdominal pain with nausea and vomiting found to have pancreatitis but also has an anion gap acidosis. 1. Diabetic ketoacidosis. Resolved. 2. Poorly controlled Type 2 diabetes. A1c 13.7. -Continue Accu-Cheks/insulin regimen. 3. Pancreatitis, likely secondary to Triglyceridemia. Resolving. -Continue with fibroids and fish oil. 4. Triglyceridemia. -Continue statin/triglycerides/fish oil. Plan: Advance diet as tolerated. Monitor blood glucose. Discharge planning in next 24 hours if patient continues to feel better and tolerates diet. Will discuss with endocrinology regarding insulin regimen upon discharge. Stop Cipro as there is no indication to continue this. Urine culture with Lexie, which is colonized and does not need to be treated. Patient is seen in collaboration with . Problems: Subjective 24 Hr Interval Summary Free Text/Dictation Patient with no further abdominal pain. He has been started on a clear diet which he is tolerating now. Exam/Review of Systems Vital Signs Vitals Vital Signs Date Time Temp Pulse Resp B/P Pulse Ox O2 Delivery O2 Flow Rate FiO2 06/12/17 07:18 97.8 95 20 114/80 99 06/11/17 20:00 Room Air Intake and Output 06/11/17 06/11/17 06/12/17 15:00 23:00 07:00 Intake Total 465.0 ml 200 ml 875 ml Output Total 1150 ml 700 ml Balance -685.0 ml 200 ml 175 ml Exam General: Well developed,adequately built, not in any acute distress . HEENT: Normocephalic, Atraumatic, No laceration or hematoma; Eyes: PEERL, Conjunctiva clear, Anicteric sclera Neck: Supple without any lymphadenopathy, nontender, no JVD, no carotid bruits, trachea midline, no thyromegaly Cardiac: S1, S2 auscultated, regular rhythm and rate, no mumurs or gallop Pulmonary: Normal respiratory effort. Chest clear to auscultation bilaterally, no adventitious breath sounds GI: Abdomen normal to inspection. Soft, non tender, non- distended, no masses, no rebound tenderness or guarding. Bowel sounds active on all four quadrants Genitourinary: Deferred Extremities: No cyanosis, clubbing, or edema. Pulses [2+] bilaterally. Full ROM on all four extremities. No focal weakness appreciated. Neurologic: Alert to person, place, time, and situation. Affect appropriate, intact sensation. Skin: Clean,dry, and intact. No ecchymosis, no rashes, or lesions Results Result Diagram: 06/12/17 0455 06/12/17 0454 Results 24 hrs Laboratory Tests Test 06/11/17 12:46 06/11/17 13:52 06/11/17 16:13 06/11/17 17:31 Bedside Glucose 125 131 152 143 Test 06/11/17 21:22 06/12/17 04:54 06/12/17 04:55 06/12/17 07:59 Bedside Glucose 135 115 Sodium Level 140 Potassium Level 3.3 L Chloride Level 108 Carbon Dioxide Level 24 Anion Gap 11 Blood Urea Nitrogen 7 Creatinine 0.54 L Glucose Level 124 # Calcium Level 8.9 Total Bilirubin 0.4 Direct Bilirubin 0.00 Indirect Bilirubin 0.4 Aspartate Amino Transf (AST/SGOT) 16 Alanine Aminotransferase (ALT/SGPT) 24 Alkaline Phosphatase 90 Total Protein 6.3 Albumin 3.0 L Globulin 3.30 H Albumin/Globulin Ratio 0.90 Amylase Level 148 H Lipase 470 H White Blood Count 3.7 #L Red Blood Count 4.49 L Hemoglobin 13.8 L Hematocrit 39.2 L Mean Corpuscular Volume 87.3 Mean Corpuscular Hemoglobin 30.7 Mean Corpuscular Hemoglobin Concent 35.2 Red Cell Distribution Width 13.9 Platelet Count 153 Mean Platelet Volume 10.7 H Neutrophils % 49.3 Lymphocytes % 35.7 Monocytes % 10.7 Eosinophils % 3.5 Basophils % 0.8 Nucleated Red Blood Cells % 0.0 Neutrophils # 1.8 Lymphocytes # 1.3 Monocytes # 0.4 Eosinophils # 0.1 Basophils # 0.0 Nucleated Red Blood Cells # 0.0 Triglycerides Level 867 H Cholesterol Level 394 #H LDL Cholesterol, Calculated 181 HDL Cholesterol 40 # Cholesterol/HDL Ratio 9.8 Medications Medications Current Medications Insulin Aspart NOVOLOG *MODERATE* ALGORI... Q4 SC ; Start 06/10/17 at 09:00; Status Future Hold Ciprofloxacin/ Dextrose (Cipro Ivpb) 200 ml @ 200 mls/hr Q12 IVPB Last administered on 06/12/17 08:14; Admin Dose 200 MLS/HR; Start 06/10/17 at 09: 00; Stop 06/17/17 at 08:59 Dextrose (D50w Syringe) 50 ml Q15M PRN IV For BS 50 or less; Start 06/10/17 at 11:30 Dextrose (D50w Syringe) 25 ml Q15M PRN IV BS between 50-70; Start 06/10/17 at 11:30 Fish Oil (Fish Oil) 2,000 mg BID PO Last administered on 06/12/17 08:14; Admin Dose 2,000 MG; Start 06/10/17 at 11:30 Hydromorphone HCl (Dilaudid) 2 mg Q2 PRN IV PAIN Last administered on 05:20; Admin Dose 2 MG; Start 06/10/17 at 18:30 Insulin Glargine (Lantus) 15 unit DAILY@20 SC Last administered on 06/11/17 21:27; Admin Dose 15 UNIT; Start 06/11/17 at 20:00 Diagnostic Test (Pha) (Accu-Chek) 1 ea 02 XX ; Start 06/12/17 at 02:00 Insulin Glargine 25 unit 25 unit DAILY@08 SC Last administered on 06/12/17 09 :34; Admin Dose 25 UNIT; Start 06/11/17 at 09:00 Potassium Chloride 10 meq/ Lactated Ringer's 1,005 ml @ 75 mls/hr [id number] IV Last administered on 06/11/17 18:44; Admin Dose 75 MLS/HR; Start 06/11/17 at 17:00 Potassium Chloride (KCl 40 MEQ/250 ML NS) 250 ml @ 62.5 mls/hr ONCE ONCE IVPB Last administered on 06/12/17 10:54; Admin Dose 62.5 MLS/HR; Start at 10:00; Stop 06/12/17 at 13:59 Fenofibrate (Tricor) 145 mg DAILY PO Last administered on 06/12/17 09:29; Admin Dose 145 MG; Start 06/12/17 at 09:00 Atorvastatin Calcium (Lipitor) 80 mg HS PO ; Start 06/12/17 at 21:00 Pioglitazone HCl (Actos) 30 mg DAILY PO Last administered on 06/12/17t 11:44; Admin Dose 30 MG; Start 06/12/17 at 09:00 NORTH PHAM NP Jun 12, 2017 12:22
[2017-06-12 14:51] LABS: MICROALBUMIN 12.8 mg/dL
[2017-06-12 19:20] VITALS: BP 136/78; RESP 20
[2017-06-12] MEDS ORDERED: ATORVASTATIN 80 MG TAB PO SCH (21:00)
[2017-06-13] MEDS: ACCU-CHEK XX SCH (01:52)
[2017-06-13 02:00] VITALS: BP 111/75; RESP 20
[2017-06-13] MEDS: HYDROmorphONE 2 MG/ML SYG IV PRN (02:42)
[2017-06-13] MEDS: POTASSIUM CHLORIDE 10 MEQ in LACTATED RINGER'S 1,000 ML IV SCH (04:39)
[2017-06-13 06:41] LABS: MAGNESIUM 1.7 mg/dl (1.7-2.5); PHOSPHORUS 3.9 mg/dl (2.5-4.9)
[2017-06-13 07:06] LABS: CALCIUM 8.6 mg/dl (8.4-10.2); CREATININE 0.52 mg/dl (0.61-1.24); POTASSIUM 3.1 mmol/L (3.5-5.1)
[2017-06-13 07:27] VITALS: BP 120/77; RESP 19
[2017-06-13] MEDS: INSULIN ASPART [NOVOLOG] 3 ML PEN SC SCH ×2 (07:50→11:40)
--- NOTE | 2017-06-13 08:36 | CONS ---
Date/Time of Note Date/Time of Note DATE: 06/13/17 TIME: 08:34 Assessment/Plan Assessment/Plan Problems: (1) Hypertriglyceridemia Status: Chronic Comment: Patient is now on full therapeutics and improving. Please note the use of insulin this patient also lower his triglyceride. He will be important for him to be on multipronged therapy as an outpatient to avoid the recurrent pancreatitis. (2) DKA (diabetic ketoacidoses) Status: Resolved Comment: Fully resolved. Qualifiers: Diabetes mellitus type: due to underlying condition Diabetes mellitus complication detail: without coma Qualified Code: E08.10 - Diabetic ketoacidosis without coma associated with diabetes mellitus due to underlying condition (3) Diabetes mellitus type 2 in nonobese Status: Chronic Comment: Is tolerating his medication regimen with good blood sugar control without hypoglycemia. This will be appropriate as an outpatient regimen (4) Pancreatitis Status: Acute Comment: His blood tests have largely normalized although he is still has a scant elevation of lipase. He should be able to have his diet advanced and possibly been discharged today or tomorrow as per the primary team Qualifiers: Chronicity: acute Pancreatitis type: other Acute pancreatitis complication: no infection or necrosis Qualified Code: K85.80 - Other acute pancreatitis without infection or necrosis Consultation Date/Type/Reason Admit Date/Time Jun 10, 2017 at 05:22 Initial Consult Date Number 2016 Type of Consultation: Endocrinology Reason for Consultation Patient reports that his abdominal pain is significantly improved. No hypoglycemic reactions Referring Provider: IRVIN HATFIELD MD 24 HR Interval Summary Constitutional: no complaints (No fevers chills or sweats) Detailed Summary Respiratory: no complaints Cardiovascular: no complaints Gastrointestinal: no complaints (Reports pain is gone nausea is gone) Exam/Review of Systems Vital Signs Vitals Vital Signs Date Time Temp Pulse Resp B/P Pulse Ox O2 Delivery O2 Flow Rate FiO2 06/13/17 07:27 98.0 80 19 120/77 98 06/11/17 20:00 Room Air Intake and Output 06/12/17 06/12/17 06/13/17 14:59 22:59 06:59 Intake Total 450 ml 960 ml 1425 ml Balance 450 ml 960 ml 1425 ml Exam Constitutional: alert, oriented Neck: non-tender, supple Respiratory: clear to auscultation, normal air movement Cardiovascular: nl pulses, regular rate and rhythm Gastrointestinal: nl liver, spleen, soft, tender (Scant epigastric tenderness) Results Result Diagram: 06/12/17 0455 06/13/17 0503 Results 24 hrs Laboratory Tests Test 06/12/17 12:35 06/12/17 17:26 06/12/17 21:29 06/13/17 01:46 Bedside Glucose 176 173 223 H 133 Test 06/13/17 05:03 06/13/17 07:33 06/13/17 07:40 Sodium Level 140 Potassium Level 3.1 L Chloride Level 106 Carbon Dioxide Level 27 Anion Gap 10 Blood Urea Nitrogen 4 L Creatinine 0.52 L Glucose Level 121 Calcium Level 8.6 Phosphorus Level 3.9 Magnesium Level 1.7 Amylase Level 89 Lipase 381 H Lab Scanned Report REFERENCE LAB Bedside Glucose 94 Medications Medications Current Medications Insulin Aspart (Novolog Insulin Pen) NOVOLOG *MODERATE* ALGORI... Q4 SC ; Start 06/10/17 at 09:00; Status Future Hold Dextrose (D50w Syringe) 50 ml Q15M PRN IV For BS 50 or less; Start 06/10/17 at 11:30 Dextrose (D50w Syringe) 25 ml Q15M PRN IV BS between 50-70; Start 06/10/17 at 11:30 Fish Oil (Fish Oil) 2,000 mg BID PO Last administered on 06/12/17 20:38; Admin Dose 2,000 MG; Start 06/10/17 at 11:30 Hydromorphone HCl (Dilaudid) 2 mg Q2 PRN IV PAIN Last administered on 02:42; Admin Dose 2 MG; Start 06/10/17 at 18:30 Insulin Glargine (Lantus) 15 unit DAILY@20 SC Last administered on 06/12/17 21:32; Admin Dose 15 UNIT; Start 06/11/17 at 20:00 Diagnostic Test (Pha) (Accu-Chek) 1 ea 02 XX Last administered on 06/13/17 01 :52; Admin Dose 1 EA; Start 06/12/17 at 02:00 Insulin Glargine 25 unit 25 unit DAILY@08 SC Last administered on 06/12/17 09 :34; Admin Dose 25 UNIT; Start 06/11/17 at 09:00 Potassium Chloride/Lactated Ringer's (KCl/Lr) 1,005 ml @ 75 mls/hr [id number] IV Last administered on 06/13/17 04:39; Admin Dose 75 MLS/HR; Start 06/11/17 at 17:00 Fenofibrate (Tricor) 145 mg DAILY PO Last administered on 06/12/17 09:29; Admin Dose 145 MG; Start 06/12/17 at 09:00 Atorvastatin Calcium (Lipitor) 80 mg HS PO Last administered on 06/12/17 20: 38; Admin Dose 80 MG; Start 06/12/17 at 21:00 Pioglitazone HCl (Actos) 30 mg DAILY PO Last administered on 06/12/17 11:44; Admin Dose 30 MG; Start 06/12/17 at 09:00 GLENN BERROIS MD Jun 13, 2017 08:36
[2017-06-13] MEDS ORDERED: POTASSIUM CHLORIDE (SR) 20 MEQ TAB PO SCH (09:00)
--- NOTE | 2017-06-13 09:00 | PDOCDIS ---
Discharge Instructions CONDITION Patient Condition: Stable HOME CARE INSTRUCTIONS: Diet Instructions: Low Fat /CholesterolYour diet recommendation is: Carbohydrate controlled, low-cholesterol diet FOLLOW UP/APPOINTMENTS Follow-up Plan 1.Follow up with primary care physician in 1 week If you don't have one please let someone know, we can give you resources that may help you pick one. You may also call your insurance company to assign one to you. Review your medication list with your nurse before leaving and if you need new prescriptions please let your nurse know. I may have made changes to your home medications or given you new prescriptions, please let your primary doctor know as well. Stay compliant with your medications and report any side effects to your PCP or pharmacist. Return to the ER if you have any concerns and cannot reach your doctors or call your insurance company, they usually have a nurse that can help you. 2. Call 911 or go to the nearest emergency room if experiencing loss of consciousness, dizziness, chest pain, shortness of breath, vomiting/abdominal pain, speech difficulties, motor weakness or any unusual symptoms. NORTH PHAM NP Jun 13, 2017 09:00
[2017-06-13] MEDS ORDERED: LANT3I SC ×2 (09:06)
[2017-06-13] MEDS ORDERED: FENO145T19 PO (09:06)
[2017-06-13] MEDS ORDERED: OMEG1CAP55 PO (09:06)
[2017-06-13] MEDS: FENOFIBRATE 145 MG TAB PO SCH (09:06)
[2017-06-13] MEDS ORDERED: PIOG30TA2 PO (09:06)
[2017-06-13] MEDS: PIOGLITAZONE 30 MG TAB PO SCH (09:06)
[2017-06-13] MEDS: FISH OIL 1,000 MG CAP PO SCH (09:06)
--- NOTE | 2017-06-13 09:06 | DS ---
Date/Time of Note Date/Time of Note DATE: 06/13/17 TIME: 09:06 Discharge Summary Admission/Discharge Info Admit Date/Time Jun 10, 2017 at 05:22 Discharge Date/Time Discharge Diagnosis 1. Diabetic ketoacidosis. Resolved. 2 Poorly controlled Type 2 diabetes. A1c 13.7. 3. Pancreatitis, likely secondary to Triglyceridemia. Resolved. 4. Hypertriglyceridemia. Patient Condition: Stable Consults [facility] Hospital Course This is a 36-year-old male with a past medical history of type 2 diabetes, hypertriglyceridemia, presented to the emergency room with sudden onset of abdominal pain with nausea and vomiting found to have pancreatitis and DKA with anion gap acidosis. Patient was started on IV insulin therapy and was admitted. DKA resolved and patient was transitioned to subcutaneous insulin. His A1c was 13.7. Patient was evaluated by construction site manager and glycemic control was achieved with Lantus 25 units in a.m and 15 units p.m. along with Actos 30 daily. Pancreatitis also started to resolve as lipase started to trend down. Patient was then started on diet which he was able to tolerate and advance. Patient was noted with hypertriglyceridemia requiring addition of fenofibrate and fish oil along with high intensity statin. At this time, patient is feeling back to his baseline. He did not have any further abdominal pain or other discomfort. DKA and pancreatitis resolved and patient is medically stable for discharge with outpatient follow-up. Patient was recommended to continue new recommendation made on his insulin therapy as well as continuation of statin and fenofibrate. Patient verbalized discharge instructions. Disposition: Home. Approximately 60 minutes was spent in coordinating the discharge on this patient. Next Patient was seen in collaboration with . Home Meds Active Scripts Pioglitazone Hcl* (Actos*) 30 Mg Tablet, 30 MG PO DAILY for 30 Days, #30 TAB Prov:NORTH PHAM V. INSTRUMENT ADJUSTER 06/13/17 Insulin Glargine* (Lantus*) 100 Unit/Ml Soln, 25 UNIT SC DAILY@08 for 30 Days, # 30 DOSE Okay to substitute with vial if pen is not covered. Provide 30 day supply of syringes and needles for administration Prov:PHAMNILAYNORTH Kirstin INSTRUMENT ADJUSTER 06/13/17 Insulin Glargine* (Lantus*) 100 Unit/Ml Soln, 15 UNIT SC DAILY@20 for 30 Days, # 30 DOSE Okay to substitute with vial if pen is not covered. Provide 30 day supply of insulin syringes, needles for administration. Provide patient with 30 day supply of lancets, and test strips to monitor blood glucose 3 times a day. Prov:PHAMNORTH V. INSTRUMENT ADJUSTER 06/13/17 [place]-3/Dha/Epa/Fish Oil (FISH OIL EC 1,000 MG SOFTGEL) 1 Each Capsule., 2000 MG PO BID, #60 CAP Prov:PHAM,NORTH V. INSTRUMENT ADJUSTER 06/13/17 Fenofibrate Nanocrystallized* (Fenofibrate*) 145 Mg Tablet, 145 MG PO DAILY, # 30 TAB Prov:PHAM,NORTH V. INSTRUMENT ADJUSTER 06/13/17 Omeprazole* (Omeprazole*) 20 Mg Capsule., 20 MG PO DAILY, #30 CAP Prov:CORRY CHAU MD 10/27/15 Discontinued Reported Medications Metformin Hcl* (Metformin Hcl*) 1,000 Mg Tablet, 1000 MG PO WITH BREAKFAST DINNE , TAB 08/23/14 Gemfibrozil* (Gemfibrozil*) 600 Mg Tablet, 600 MG PO BID, TAB 08/23/14 Discontinued Scripts Insulin Aspart* (Novolog Insulin Pen*) 100 Unit/Ml Soln, 5 UNIT SC WITH MEALS for 30 Days, 2 Refills Prov:IRVIN HATFIELD MD 08/26/14 Insulin Glargine* (Lantus*) 100 Unit/Ml Soln, 35 UNIT SC QHS for 30 Days, 2 Refills Prov:IRVIN HATFIELD MD 08/26/14 Follow-up Plan 1.Follow up with primary care physician in 1 week If you don't have one please let someone know, we can give you resources that may help you pick one. You may also call your insurance company to assign one to you. Review your medication list with your nurse before leaving and if you need new prescriptions please let your nurse know. I may have made changes to your home medications or given you new prescriptions, please let your primary doctor know as well. Stay compliant with your medications and report any side effects to your PCP or pharmacist. Return to the ER if you have any concerns and cannot reach your doctors or call your insurance company, they usually have a nurse that can help you. 2. Call 911 or go to the nearest emergency room if experiencing loss of consciousness, dizziness, chest pain, shortness of breath, vomiting/abdominal pain, speech difficulties, motor weakness or any unusual symptoms. Primary Care Provider Not On Staff Doctor Pending Labs Laboratory Tests Test 06/12/17 12:35 06/12/17 17:26 06/12/17 21:29 06/13/17 01:46 Bedside Glucose 176mg/dL (70-220) 173mg/dL (70-220) 223mg/dL (70-220) 133mg/dL (70-220) Test 06/13/17 05:03 06/13/17 07:33 06/13/17 07:40 Sodium Level 140mmol/L (135-144) Potassium Level 3.1mmol/L (3.5-5.1) Chloride Level 106mmol/L (97-110) Carbon Dioxide Level 27mmol/L (21-31) Anion Gap 10 (8-16) Blood Urea Nitrogen 4mg/dl (7-20) Creatinine 0.52mg/dl (0.61-1.24) Glucose Level 121mg/dl (70-220) Calcium Level 8.6mg/dl (8.4-10.2) Phosphorus Level 3.9mg/dl (2.5-4.9) Magnesium Level 1.7mg/dl (1.7-2.5) Amylase Level 89U/L (11-123) Lipase 381U/L (23-300) Lab Scanned Report REFERENCE [id number] Bedside Glucose 94mg/dL (70-220) NORTH PHAM NP Jun 13, 2017 09:06
[2017-06-13] MEDS: INSULIN GLARGINE [LANtus] 3 ML PEN SC SCH (09:11)
== END 2017-06-13 13:20 | disposition home or self-care (01) | DRG 438 ==
LOC: FTE 22:58 → ICU 06-10 05:22 → MS1 06-10 05:22 → UNDOADMIN 06-10 05:22 → MS1 06-11 22:35
PROVIDERS: ADMIT Family Medicine; ATTEND Family Medicine
DX: K85.90 Acute pancreatitis without necrosis or infection, unspecified (principal); E11.10 Type 2 diabetes mellitus with ketoacidosis without coma; E11.69 Type 2 diabetes mellitus with other specified complication; E78.2 Mixed hyperlipidemia; E78.1 Pure hyperglyceridemia; E11.65 Type 2 diabetes mellitus with hyperglycemia; Z79.4 Long term (current) use of insulin; F17.210 Nicotine dependence, cigarettes, uncomplicated; Z83.3 Family history of diabetes mellitus
CPT/HCPCS: 36415; 76705; 80048; 80053; 80061; 81001; 82043; 82150; 82947; 82962; 83036; 83605; 83690; 83735; 84100; 84443; 84484; 84681; 85025; 85610; 85730; 87040; 87086; 93005; 96361; 96365; 96366; 96368; 96375; 96376; J0744; J1170; J1815; J2270; J2405; J3480; J7030; J7042; J7120